=== PATIENT | male | born 1945 | race Caucasian/White ===

== ENCOUNTER → 2017-02-03 | Outpatient (CLI) | payer MEDICARE ==
[~2017-02-03] MED LIST: REGADENOSON 0.4 MG/5 ML SYRINGE ONE
== END | disposition home or self-care (01) ==
LOC: CFH 11:36
PROVIDERS: ATTEND Physician Assistant Medical
DX: I25.9 Chronic ischemic heart disease, unspecified (principal)
CPT/HCPCS: 78452; 93017; A9502; J2785

== ENCOUNTER 2017-03-05 06:50 | Inpatient (IN) | payer MEDICARE ==
[~2017-03-05] VITALS: Ht 185.4 cm; Wt 106.3 kg
[2017-03-05] MEDS ORDERED: BIVALIRUDIN 250 MG ONE ×2 (07:07→09:17)
[2017-03-05] MEDS ORDERED: VERAPAMIL 2.5 MG/ML, 2ML ONE (07:07)
[2017-03-05] MEDS ORDERED: MIDAZOLAM 1 MG/ML, 5ML ONE ×2 (07:07→08:51)
[2017-03-05] MEDS ORDERED: LIDOCAINE 2%, 20ML ONE (07:07)
[2017-03-05] MEDS ORDERED: FENTANYL PF 100 MCG/2ML ONE ×2 (07:07→08:51)
[2017-03-05] MEDS ORDERED: TICAGRELOR 90 MG TABLET ONE (07:07)
[2017-03-05] MEDS ORDERED: HEPARIN 1,000 UNITS/ML, 10ML ONE (07:07)
[2017-03-05] MEDS ORDERED: NITROGLYCERIN 5 MG/ML, 10ML ONE (07:07)
[2017-03-05 07:18] VITALS: BP 130/87
[2017-03-05] MEDS ORDERED: WARF2.5T73 PO (07:50)
[2017-03-05] MEDS ORDERED: POTA20TA6 PO (07:50)
[2017-03-05] MEDS ORDERED: DILT240C55 PO (07:50)
[2017-03-05] MEDS ORDERED: FURO-93 PO (07:50)
[2017-03-05] MEDS ORDERED: LOSA100T6 PO (07:50)
[2017-03-05] MEDS ORDERED: ASPI-496 PO (07:50)
[2017-03-05] MEDS ORDERED: DIGO250T PO (07:50)
[2017-03-05] MEDS ORDERED: SIMV40TA3 PO (07:50)
[2017-03-05] MEDS ORDERED: METF500T4 PO (07:50)
[2017-03-05] MEDS ORDERED: SODIUM CHLORIDE 0.9% 1,000 ML IV SCH (10:45)
[2017-03-05] MEDS ORDERED: ZOLPIDEM 5MG TABLET PO PRN (11:00)
[2017-03-05] MEDS ORDERED: BISACODYL 5 MG EC TABLET PO PRN (11:00)
[2017-03-05] MEDS ORDERED: ACETAMINOPHEN 325 MG TABLET PO PRN (11:00)
[2017-03-05] MEDS ORDERED: ONDANSETRON 2MG/ML, 2ML IVPush PRN (11:00)
[2017-03-05] MEDS: ISOSORBIDE MONONITRATE ER 30 MG TABLET PO SCH (13:39)
[2017-03-05] MEDS: metFORMIN 500 MG TABLET PO SCH (13:39)
[2017-03-05 14:57] VITALS: BP 118/70
[2017-03-05] MEDS ORDERED: WARFARIN 2.5 MG TABLET PO-COUM SCH (18:00)
[2017-03-05 19:12] VITALS: BP 118/75
[2017-03-05] MEDS: TICAGRELOR 90 MG TABLET PO SCH (20:09)
[2017-03-05] MEDS ORDERED: SIMVASTATIN 40 MG TABLET PO SCH (21:00)
[2017-03-06 01:47] VITALS: BP 113/66
[2017-03-06 07:18] VITALS: BP 155/93
[2017-03-06] MEDS: metFORMIN 500 MG TABLET PO SCH (08:00)
[2017-03-06] MEDS: TICAGRELOR 90 MG TABLET PO SCH (08:49)
[2017-03-06] MEDS: ISOSORBIDE MONONITRATE ER 30 MG TABLET PO SCH (08:51)
[2017-03-06] MEDS ORDERED: ASPIRIN 81 MG TABLET EC PO SCH (09:00)
[2017-03-06] MEDS ORDERED: FUROSEMIDE 40 MG TABLET PO SCH (09:00)
[2017-03-06] MEDS ORDERED: DILTIAZEM 240 MG CAP.ER.24H PO SCH (09:00)
[2017-03-06] MEDS ORDERED: LOSARTAN 50MG TABLET PO SCH (09:00)
[2017-03-06] MEDS ORDERED: POTASSIUM CHLORIDE 20 MEQ TAB.ER.PRT PO SCH (09:00)
[2017-03-06] MEDS ORDERED: DIGOXIN 0.25 MG TABLET PO SCH (09:00)
[2017-03-06] MEDS ORDERED: TICA90TA PO (11:00)
[2017-03-06] MEDS ORDERED: ISOS30TA8 PO (11:00)
== END 2017-03-06 12:16 | disposition home or self-care (01) | DRG 246 ==
LOC: CACL 06:50 → 5SO 11:18 → CACL 22:30 → 5SO 22:31
PROVIDERS: ADMIT Internal Medicine Cardiovascular Disease; ATTEND Internal Medicine Cardiovascular Disease
PROC: 027137Z Dilation of Coronary Artery, Two Arteries with Four or More Drug-eluting Intraluminal Devices, Percutaneous Approach (ICD-10-PCS; principal; 2017-03-05)
PROC: 4A023N7 Measurement of Cardiac Sampling and Pressure, Left Heart, Percutaneous Approach (ICD-10-PCS; 2017-03-05)
PROC: B2111ZZ Fluoroscopy of Multiple Coronary Arteries using Low Osmolar Contrast (ICD-10-PCS; 2017-03-05)
PROC: B2151ZZ Fluoroscopy of Left Heart using Low Osmolar Contrast (ICD-10-PCS; 2017-03-05)
DX: I25.10 Atherosclerotic heart disease of native coronary artery without angina pectoris (principal); D68.69 Other thrombophilia; I48.2 Chronic atrial fibrillation; E11.9 Type 2 diabetes mellitus without complications; E78.5 Hyperlipidemia, unspecified; I10 Essential (primary) hypertension
CPT/HCPCS: 36415; 71020; 82962; 85610; 85730; 93458; 99156; 99157; C1769; C1894; C9600; J0583; J1644; J2250; J3010; J3490; C1725; C1874; C1887; Q9967

== ENCOUNTER → 2017-09-17 | Outpatient (CLI) | payer MEDICARE ==
[~2017-09-17] MED LIST changes: +ASPI-496 PO; +DIGO250T PO; +DILT240C55 PO; +FURO-93 PO; +ISOS30TA8 PO; +LOSA100T6 PO; +METF500T4 PO; +POTA20TA6 PO; +SIMV40TA3 PO; +TICA90TA PO; +WARF2.5T73 PO
== END | disposition home or self-care (01) ==
LOC: CFH 10:22
PROVIDERS: ATTEND Internal Medicine Cardiovascular Disease
DX: I08.3 Combined rheumatic disorders of mitral, aortic and tricuspid valves (principal); E78.5 Hyperlipidemia, unspecified; I10 Essential (primary) hypertension; I25.5 Ischemic cardiomyopathy; I48.91 Unspecified atrial fibrillation; Z79.01 Long term (current) use of anticoagulants
CPT/HCPCS: 78452; 93017; 93306; A9502; J2785

== ENCOUNTER 2017-11-26 04:20 | Inpatient (IN) | payer MEDICARE ==
[2017-11-25 13:46] LABS: BASOPHILS # (AUTO) 0.03 x10^3/uL (0-0.1); BASOPHILS % (AUTO) 0 % (0-1); EOSINOPHILS # (AUTO) 0.14 x10^3/uL (0-0.4); EOSINOPHILS % (AUTO) 2 % (1-7); LYMPHOCYTES # (AUTO) 1.84 x10^3/uL (1-3.4); LYMPHOCYTES % (AUTO) 23 % (22-44); MD NO; MEAN CORPUSCULAR HEMOGLOBIN 28.9 pg (27.5-34.5); MEAN CORPUSCULAR HGB CONC 32.2 g/dL (33.2-36.2); MEAN CORPUSCULAR VOLUME 89.6 fL (81-97); MEAN PLATELET VOLUME 8.7 fL (7.4-10.4); MONOCYTES # (AUTO) 0.81 x10^3/uL (0.2-0.8); MONOCYTES % (AUTO) 10 % (2-9); NEUTROPHILS # (AUTO) 5.12 x10^3/uL (1.8-6.8); NEUTROPHILS % (AUTO) 65 % (42-75); PLATELET COUNT 223 x10^3/uL (130-400); RED BLOOD COUNT 5.43 x10^6/uL (4.38-5.82); RED CELL DISTRIBUTION WIDTH 14.8 % (9.4-14.8)
[2017-11-25 13:50] LABS: MICROSCOPIC AUTO
[2017-11-25 13:55] LABS: INTERNATIONAL NORMALIZED RATIO 1.22 (0.93-1.1); PROTHROMBIN TIME 12.6 Seconds (9.6-11.5)
[2017-11-25 13:59] LABS: ALANINE AMINOTRANSFERASE 32 U/L (12-78); ALBUMIN 3.6 g/dL (3.4-5.0); ANION GAP 8 mmol/L (5-15); CALCIUM 9.2 mg/dL (8.5-10.1); CHLORIDE 103 mmol/L (98-107); CREATININE 1.21 mg/dL (0.7-1.3)
[2017-11-25 14:01] LABS: ALKALINE PHOSPHATASE 135 U/L (45-117); BILIRUBIN,TOTAL 0.8 mg/dL (0.2-1.0); TOTAL PROTEIN 7.3 g/dL (6.4-8.2)
[2017-11-25 14:26] LABS: HEMOGLOBIN A1C 13.8 % (4.2-6.3)
[~2017-11-26] VITALS: Ht 185.4 cm; Wt 106.5 kg
[~2017-11-26 04:20] MED LIST changes: -REGADENOSON 0.4 MG/5 ML SYRINGE ONE
[2017-11-26 04:34] VITALS: BP 149/90
[2017-11-26 04:35] VITALS: BP 132/87
[2017-11-26] MEDS ORDERED: CHLORHEXIDINE 15 ML BOTTLE MM SCH (05:00)
[2017-11-26] MEDS ORDERED: INSULIN LISPRO 100 UNITS/ML, PEN SQ-INSULIN SCH (05:00)
[2017-11-26] MEDS: MUPIROCIN OINT 2%, 22GM TP SCH ×2 (05:37→21:00)
[2017-11-26] MEDS ORDERED: PHENYLEPHRINE 10 MG in SODIUM CHLORIDE 0.9% 249 ML IV PRN ×2 (07:30→11:51)
[2017-11-26] MEDS ORDERED: DEXMEDETOMIDINE 200 MCG in SODIUM CHLORIDE 0.9% 48 ML IV SCH (07:30)
[2017-11-26] MEDS ORDERED: VANCOMYCIN 1,400 MG in SODIUM CHLORIDE 0.9% 250 ML IV PRN (07:30)
[2017-11-26] MEDS ORDERED: CEFUROXIME 1.5 GM in SODIUM CHLORIDE 0.9% 50 ML IVPB PRN (07:30)
[2017-11-26] MEDS ORDERED: POTASSIUM CHLORIDE 80 MEQ, SODIUM BICARBONATE 8.4% 10 MEQ, MAGNESIUM SULFATE 0.5 GM, LI... IV PRN (07:30)
[2017-11-26] MEDS ORDERED: REGULAR INSULIN 62.5 UNITS in SODIUM CHLORIDE 0.9% 249.375 ML IV PRN ×2 (07:30→11:51)
[2017-11-26] MEDS ORDERED: MANNITOL PMX 20% 500 ML IVPB PRN (07:30)
[2017-11-26] MEDS ORDERED: EPINEPHRINE 2 MG in SODIUM CHLORIDE 0.9% 248 ML IV SCH (07:30)
[2017-11-26] MEDS ORDERED: ALBUMIN HUMAN 5% 500 ML IV PRN (07:30)
[2017-11-26] MEDS ORDERED: FENTANYL PF 250 MCG/5ML ONE ×4 (07:33)
[2017-11-26] MEDS ORDERED: MIDAZOLAM 10MG/2 ML ONE (07:33)
[2017-11-26] MEDS ORDERED: CALCIUM CHLORIDE 10%, 10ML SYR ONE (07:34)
[2017-11-26] MEDS ORDERED: PROPOFOL 10 MG/ML, 20ML ONE (07:54)
[2017-11-26] MEDS: DOCUSATE 100 MG CAPSULE PO SCH ×2 (09:00→21:58)
[2017-11-26] MEDS ORDERED: ROCURONIUM 10MG/ML,5ML ONE ×3 (10:12)
[2017-11-26] MEDS ORDERED: DEXMEDETOMIDINE 200 MCG in SODIUM CHLORIDE 0.9% 48 ML IV PRN (11:51)
[2017-11-26] MEDS ORDERED: DOBUTAMINE 250 MG in SODIUM CHLORIDE 0.9% 230 ML IV PRN (11:51)
[2017-11-26] MEDS ORDERED: NITROGLYCERIN/D5W PMX 250 ML IV PRN (11:51)
[2017-11-26] MEDS ORDERED: VASOPRESSIN 50 UNIT in SODIUM CHLORIDE 0.9% 250 ML IV PRN (11:51)
[2017-11-26] MEDS ORDERED: SODIUM CHLORIDE 0.9% 1,000 ML IV PRN (11:51)
[2017-11-26] MEDS ORDERED: DEXTROSE 50%, 50ML SYRINGE IVPush PRN (12:00)
[2017-11-26] MEDS ORDERED: CEFUROXIME 1.5 GM in SODIUM CHLORIDE 0.9% 50 ML IVPB SCH (12:00)
[2017-11-26] MEDS ORDERED: BISACODYL 5 MG EC TABLET PO PRN (12:00)
[2017-11-26] MEDS ORDERED: LACTATED RINGERS 1,000 ML IV PRN (12:00)
[2017-11-26] MEDS ORDERED: LIDOCAINE 2% 100MG/5ML SYRINGE ONE (12:00)
[2017-11-26] MEDS ORDERED: ONDANSETRON 2MG/ML, 2ML IVPush PRN (12:00)
[2017-11-26] MEDS ORDERED: GLUCAGON 1 MG IM PRN (12:00)
[2017-11-26] MEDS ORDERED: EPINEPHRINE 2 MG in SODIUM CHLORIDE 0.9% 248 ML IV PRN (12:00)
[2017-11-26] MEDS ORDERED: SODIUM BICARB 8.4%, 50ML SYRINGE ONE (12:00)
[2017-11-26] MEDS ORDERED: MIDAZOLAM 1 MG/ML, 5ML IVPush PRN (12:00)
[2017-11-26] MEDS ORDERED: VANCOMYCIN 1,400 MG in SODIUM CHLORIDE 0.9% 250 ML IVPB SCH (12:00)
[2017-11-26] MEDS ORDERED: methylPREDNISolone SOD SUCC 125 MG/2 ML ONE (12:00)
[2017-11-26] MEDS ORDERED: HEPARIN 1,000 UNITS/ML, 30ML ONE (12:00)
[2017-11-26] MEDS: KSCALE TO 4.5 IV SCH ×2 (12:00→18:00)
[2017-11-26] MEDS ORDERED: ALBUMIN HUMAN 25% 50 ML ONE (12:00)
[2017-11-26] MEDS ORDERED: morphine SULFATE 10 MG/ML, 1ML IVPush PRN (12:00)
[2017-11-26] MEDS ORDERED: SODIUM BICARB 8.4%, 50ML SYRINGE IV PRN (12:00)
[2017-11-26] MEDS ORDERED: BISACODYL 10 MG SUPP PR PRN (12:00)
[2017-11-26] MEDS ORDERED: PROCHLORPERAZINE 5 MG/ML, 2ML IVPush PRN (12:00)
[2017-11-26] MEDS ORDERED: ACETAMINOPHEN 650 MG SUPP PR PRN (12:00)
[2017-11-26] MEDS ORDERED: INSULIN REGULAR 100 UNITS/ML, 3ML VIAL IVPush PRN (12:00)
[2017-11-26] MEDS ORDERED: DEXTROSE 4 GM TAB.CHEW PO PRN (12:00)
[2017-11-26 12:37] LABS: GLUCOSE BY BLOOD GAS ANALYZER 176 mg/dL (70-110); HEMOGLOBIN BY BLOOD GAS ANALYZ 13.6 g/dL (14.0-18.0); POTASSIUM BY BLOOD GAS ANALYZR 3.7 mmol/L (3.6-5.5)
[2017-11-26 12:47] LABS: INTERNATIONAL NORMALIZED RATIO 1.28 (0.93-1.1); PROTHROMBIN TIME 13.2 Seconds (9.6-11.5)
[2017-11-26] MEDS: MAGNESIUM SULFATE 1 GM in SODIUM CHLORIDE 0.9% 50 ML IVPB SCH (13:28)
[2017-11-26] MEDS: SODIUM CHLORIDE FLUSH 10ML SYR IVF SCH ×2 (13:29→21:59)
[2017-11-26] MEDS ORDERED: POTASSIUM CHLORIDE 20 MEQ in SODIUM CHLORIDE 0.9% 100 ML IV ONE ×2 (14:30)
[2017-11-26] MEDS ORDERED: POTASSIUM CHLORIDE PMX 100 ML IV ONE (14:30)
[2017-11-26] MEDS: OXYcodone IR 5MG TABLET PO PRN ×2 (14:53→17:44)
[2017-11-26] MEDS: INSULIN LISPRO 100 UNITS/ML, PEN SQ-INSULIN SCH ×2 (16:00→21:00)
[2017-11-26] MEDS: VANCOMYCIN 1,400 MG in SODIUM CHLORIDE 0.9% 250 ML IVPB SCH (20:19)
[2017-11-26] MEDS: CEFUROXIME 1.5 GM in SODIUM CHLORIDE 0.9% 50 ML IVPB SCH (20:42)
[2017-11-26] MEDS ORDERED: SODIUM CHLORIDE FLUSH 10ML SYR IVF SCH (21:00)
[2017-11-26] MEDS: HYDROcodone/APAP 5/325 TABLET PO PRN (21:58)
[2017-11-26] MEDS: MUPIROCIN OINT 2%, 22GM NAS SCH (21:59)
[2017-11-27] MEDS: HYDROcodone/APAP 5/325 TABLET PO PRN ×5 (02:21→15:43)
[2017-11-27 04:28] LABS: BASOPHILS # (AUTO) 0.01 x10^3/uL (0-0.1); BASOPHILS % (AUTO) 0 % (0-1); EOSINOPHILS % (AUTO) 0 % (1-7); LYMPHOCYTES # (AUTO) 0.65 x10^3/uL (1-3.4); LYMPHOCYTES % (AUTO) 6 % (22-44); MD NO; MEAN CORPUSCULAR HEMOGLOBIN 29.2 pg (27.5-34.5); MEAN CORPUSCULAR HGB CONC 32.2 g/dL (33.2-36.2); MEAN CORPUSCULAR VOLUME 90.7 fL (81-97); MEAN PLATELET VOLUME 8.5 fL (7.4-10.4); MONOCYTES # (AUTO) 1.08 x10^3/uL (0.2-0.8); MONOCYTES % (AUTO) 9 % (2-9); NEUTROPHILS # (AUTO) 10.16 x10^3/uL (1.8-6.8); NEUTROPHILS % (AUTO) 85 % (42-75); PLATELET COUNT 205 x10^3/uL (130-400); RED BLOOD COUNT 4.86 x10^6/uL (4.38-5.82); RED CELL DISTRIBUTION WIDTH 15.5 % (9.4-14.8)
[2017-11-27 04:35] LABS: ALBUMIN 3.4 g/dL (3.4-5.0); ANION GAP 9 mmol/L (5-15); CALCIUM 8.2 mg/dL (8.5-10.1); CHLORIDE 110 mmol/L (98-107)
[2017-11-27 04:36] LABS: CREATININE 0.88 mg/dL (0.7-1.3)
[2017-11-27 05:00] VITALS: BP 111/54
[2017-11-27] MEDS: KSCALE TO 4.5 IV SCH ×2 (06:00)
[2017-11-27] MEDS: INSULIN LISPRO 100 UNITS/ML, PEN SQ-INSULIN SCH ×4 (07:00→21:50)
[2017-11-27] MEDS ORDERED: MAGNESIUM HYDROXIDE 8%, 30ML UDC PO PRN (07:00)
[2017-11-27] MEDS: CEFUROXIME 1.5 GM in SODIUM CHLORIDE 0.9% 50 ML IVPB SCH (07:40)
[2017-11-27] MEDS: VANCOMYCIN 1,400 MG in SODIUM CHLORIDE 0.9% 250 ML IVPB SCH (07:40)
[2017-11-27 07:47] LABS: INTERNATIONAL NORMALIZED RATIO 1.1 (0.93-1.1); PROTHROMBIN TIME 11.4 Seconds (9.6-11.5)
[2017-11-27] MEDS ORDERED: POTASSIUM CHLORIDE 20 MEQ TAB.ER.PRT PO ONE (08:00)
[2017-11-27] MEDS: AMIODARONE 200 MG TABLET PO SCH ×2 (08:21→21:46)
[2017-11-27] MEDS: ASPIRIN 81 MG TABLET EC PO SCH (08:21)
[2017-11-27] MEDS: DOCUSATE 100 MG CAPSULE PO SCH ×2 (08:21→21:46)
[2017-11-27] MEDS: ISOSORBIDE MONONITRATE ER 30 MG TABLET PO SCH (08:21)
[2017-11-27] MEDS: DILTIAZEM 120 MG CAP.ER.24H PO SCH (08:21)
[2017-11-27] MEDS: SODIUM CHLORIDE FLUSH 10ML SYR IVF SCH ×2 (08:22→21:49)
[2017-11-27] MEDS: TICAGRELOR 90 MG TABLET PO SCH ×2 (08:22→21:46)
[2017-11-27] MEDS: WARFARIN BIOPROSTHETIC VALVE PROTOCOL 2-3 XX SCH (08:23)
[2017-11-27] MEDS: MUPIROCIN OINT 2%, 22GM NAS SCH ×2 (08:23→21:47)
[2017-11-27] MEDS: MUPIROCIN OINT 2%, 22GM TP SCH (08:23)
[2017-11-27] MEDS ORDERED: DILTIAZEM 240 MG CAP.ER.24H PO SCH (09:00)
[2017-11-27] MEDS ORDERED: metFORMIN 500 MG TABLET PO SCH (09:00)
[2017-11-27] MEDS ORDERED: FUROSEMIDE 40 MG/4 ML IV SCH (09:00)
[2017-11-27] MEDS: MAGNESIUM SULFATE 1 GM in SODIUM CHLORIDE 0.9% 50 ML IVPB SCH (12:13)
[2017-11-27] MEDS: CHLORHEXIDINE 15 ML BOTTLE MM SCH ×2 (15:43→21:44)
[2017-11-27] MEDS: SITAGLIPTIN 50MG TABLET PO SCH (15:57)
[2017-11-27 16:20] VITALS: BP 136/75
[2017-11-27] MEDS: OXYcodone IR 5MG TABLET PO PRN (16:24)
[2017-11-27] MEDS: metFORMIN 500 MG TABLET PO SCH (16:50)
[2017-11-27] MEDS ORDERED: WARFARIN 5 MG TABLET PO-COUM SCH (18:00)
[2017-11-27] MEDS ORDERED: SODIUM CHLORIDE FLUSH 10ML SYR IVF SCH (21:00)
[2017-11-27] MEDS: SIMVASTATIN 40 MG TABLET PO SCH (21:46)
[2017-11-27 21:50] VITALS: BP 118/62
[2017-11-28 01:13] VITALS: BP 120/65
[2017-11-28 04:23] LABS: MEAN CORPUSCULAR HEMOGLOBIN 29.4 pg (27.5-34.5); MEAN CORPUSCULAR HGB CONC 32.3 g/dL (33.2-36.2); MEAN CORPUSCULAR VOLUME 90.9 fL (81-97); MEAN PLATELET VOLUME 8.5 fL (7.4-10.4); PLATELET COUNT 175 x10^3/uL (130-400); RED BLOOD COUNT 4.57 x10^6/uL (4.38-5.82); RED CELL DISTRIBUTION WIDTH 15.9 % (9.4-14.8)
[2017-11-28 04:28] LABS: MD YES
[2017-11-28 04:30] LABS: INTERNATIONAL NORMALIZED RATIO 1.21 (0.93-1.1); PROTHROMBIN TIME 12.5 Seconds (9.6-11.5)
[2017-11-28 04:38] LABS: ANION GAP 9 mmol/L (5-15); CALCIUM 8.7 mg/dL (8.5-10.1); CHLORIDE 105 mmol/L (98-107); CREATININE 1.49 mg/dL (0.7-1.3)
[2017-11-28 04:42] LABS: LYMPHS% (MANUAL) 11 % (22-44); MONOS#(MANUAL) 1.27 x10^3/uL (0.3-2.7); MONOS% (MANUAL) 10 % (2-9); SEG#(MANUAL) 10.03 x10^3/uL (1.8-6.8); SEGS% (MANUAL) 79 % (42-75)
[2017-11-28 04:43] LABS: <PLATELET ESTIMATE> ADEQUATE; ANISOCYTOSIS 1+; LARGE PLATELETS 1+; POLYCHROMASIA 1+
[2017-11-28] MEDS: metFORMIN 500 MG TABLET PO SCH (05:53)
[2017-11-28] MEDS ORDERED: LACTATED RINGERS 500 ML IVBOLUS ONE (06:30)
[2017-11-28] MEDS ORDERED: INSULIN GLARGINE 100 UNITS/ML, PEN SQ-INSULIN ONE (07:00)
[2017-11-28 07:05] VITALS: BP 110/65
[2017-11-28] MEDS: INSULIN LISPRO 100 UNITS/ML, PEN SQ-INSULIN SCH ×4 (08:29→21:41)
[2017-11-28] MEDS: SODIUM CHLORIDE FLUSH 10ML SYR IVF SCH ×2 (08:30→21:38)
[2017-11-28] MEDS: ASPIRIN 81 MG TABLET EC PO SCH (08:31)
[2017-11-28] MEDS: DOCUSATE 100 MG CAPSULE PO SCH ×2 (08:31→21:37)
[2017-11-28] MEDS: SITAGLIPTIN 50MG TABLET PO SCH (08:31)
[2017-11-28] MEDS: DILTIAZEM 120 MG CAP.ER.24H PO SCH (08:31)
[2017-11-28] MEDS: MUPIROCIN OINT 2%, 22GM NAS SCH ×2 (08:31→21:38)
[2017-11-28] MEDS: TICAGRELOR 90 MG TABLET PO SCH ×2 (08:31→21:37)
[2017-11-28] MEDS: ACETAMINOPHEN 325 MG TABLET PO PRN ×2 (08:32→21:37)
[2017-11-28] MEDS: AMIODARONE 200 MG TABLET PO SCH ×2 (08:32→21:38)
[2017-11-28] MEDS: WARFARIN BIOPROSTHETIC VALVE PROTOCOL 2-3 XX SCH (08:32)
[2017-11-28] MEDS: ISOSORBIDE MONONITRATE ER 30 MG TABLET PO SCH (08:32)
[2017-11-28] MEDS: CHLORHEXIDINE 15 ML BOTTLE MM SCH (11:59)
[2017-11-28] MEDS: MAGNESIUM SULFATE 1 GM in SODIUM CHLORIDE 0.9% 50 ML IVPB SCH (12:09)
[2017-11-28 13:30] VITALS: BP 116/72
[2017-11-28 14:58] LABS: ANION GAP 10 mmol/L (5-15); CALCIUM 8.3 mg/dL (8.5-10.1); CHLORIDE 103 mmol/L (98-107); CREATININE 1.64 mg/dL (0.7-1.3)
[2017-11-28] MEDS ORDERED: WARFARIN 3 MG TABLET PO-COUM SCH (18:00)
[2017-11-28 19:20] VITALS: BP 123/78
[2017-11-28] MEDS: SIMVASTATIN 40 MG TABLET PO SCH (21:37)
[2017-11-28] MEDS: INSULIN GLARGINE 100 UNITS/ML, PEN SQ-INSULIN SCH (21:41)
[2017-11-29] MEDS: CHLORHEXIDINE 15 ML BOTTLE MM SCH (00:16)
[2017-11-29 00:17] VITALS: BP 114/69
[2017-11-29 06:08] LABS: MEAN CORPUSCULAR HEMOGLOBIN 28.5 pg (27.5-34.5); MEAN CORPUSCULAR HGB CONC 31.5 g/dL (33.2-36.2); MEAN CORPUSCULAR VOLUME 90.4 fL (81-97); MEAN PLATELET VOLUME 8.6 fL (7.4-10.4); PLATELET COUNT 163 x10^3/uL (130-400); RED BLOOD COUNT 4.61 x10^6/uL (4.38-5.82); RED CELL DISTRIBUTION WIDTH 15.7 % (9.4-14.8)
[2017-11-29 06:11] LABS: INTERNATIONAL NORMALIZED RATIO 1.26 (0.93-1.1)
[2017-11-29 06:18] LABS: ALBUMIN 2.8 g/dL (3.4-5.0); ANION GAP 9 mmol/L (5-15); CALCIUM 8.7 mg/dL (8.5-10.1); CHLORIDE 102 mmol/L (98-107)
[2017-11-29 06:23] LABS: ALANINE AMINOTRANSFERASE 25 U/L (12-78); ALKALINE PHOSPHATASE 91 U/L (45-117); BILIRUBIN,TOTAL 1.1 mg/dL (0.2-1.0); CREATININE 1.49 mg/dL (0.7-1.3); TOTAL PROTEIN 6.2 g/dL (6.4-8.2)
[2017-11-29 06:34] LABS: BASOPHILS # (AUTO) 0.04 x10^3/uL (0-0.1); BASOPHILS % (AUTO) 0 % (0-1); EOSINOPHILS # (AUTO) 0.01 x10^3/uL (0-0.4); EOSINOPHILS % (AUTO) 0 % (1-7); LYMPHOCYTES # (AUTO) 1.12 x10^3/uL (1-3.4); LYMPHOCYTES % (AUTO) 10 % (22-44); MONOCYTES # (AUTO) 1.57 x10^3/uL (0.2-0.8); MONOCYTES % (AUTO) 14 % (2-9); NEUTROPHILS # (AUTO) 8.52 x10^3/uL (1.8-6.8); NEUTROPHILS % (AUTO) 76 % (42-75)
[2017-11-29 06:35] LABS: MD SCAN
[2017-11-29 07:05] VITALS: BP 115/74
[2017-11-29] MEDS: MUPIROCIN OINT 2%, 22GM NAS SCH ×2 (08:48→22:16)
[2017-11-29] MEDS: INSULIN GLARGINE 100 UNITS/ML, PEN SQ-INSULIN SCH ×2 (08:50→22:22)
[2017-11-29] MEDS: INSULIN LISPRO 100 UNITS/ML, PEN SQ-INSULIN SCH ×4 (08:50→22:22)
[2017-11-29] MEDS: ASPIRIN 81 MG TABLET EC PO SCH (08:51)
[2017-11-29] MEDS: SODIUM CHLORIDE FLUSH 10ML SYR IVF SCH ×2 (08:51→22:17)
[2017-11-29] MEDS: ACETAMINOPHEN 325 MG TABLET PO PRN ×2 (08:51→14:42)
[2017-11-29] MEDS: DILTIAZEM 120 MG CAP.ER.24H PO SCH (08:51)
[2017-11-29] MEDS: AMIODARONE 200 MG TABLET PO SCH ×2 (08:51→22:16)
[2017-11-29] MEDS: TICAGRELOR 90 MG TABLET PO SCH ×2 (08:51→22:16)
[2017-11-29] MEDS: DOCUSATE 100 MG CAPSULE PO SCH ×2 (08:51→22:16)
[2017-11-29] MEDS: ISOSORBIDE MONONITRATE ER 30 MG TABLET PO SCH (08:51)
[2017-11-29] MEDS: WARFARIN BIOPROSTHETIC VALVE PROTOCOL 2-3 XX SCH (08:52)
[2017-11-29 12:55] VITALS: BP 123/76
[2017-11-29] MEDS ORDERED: WARFARIN 5 MG TABLET PO-COUM ONE (18:00)
[2017-11-29] MEDS: HYDROcodone/APAP 5/325 TABLET PO PRN (18:08)
[2017-11-29 20:33] VITALS: BP 113/71
[2017-11-29] MEDS: SIMVASTATIN 40 MG TABLET PO SCH (22:17)
[2017-11-29] MEDS: HYDROcodone/APAP 10/325 MG TABLET PO PRN (22:26)
[2017-11-30 00:55] VITALS: BP 125/70
[2017-11-30 05:16] LABS: MEAN CORPUSCULAR HEMOGLOBIN 28.9 pg (27.5-34.5); MEAN CORPUSCULAR HGB CONC 32.2 g/dL (33.2-36.2); MEAN CORPUSCULAR VOLUME 89.8 fL (81-97); MEAN PLATELET VOLUME 8.5 fL (7.4-10.4); PLATELET COUNT 182 x10^3/uL (130-400); RED BLOOD COUNT 4.48 x10^6/uL (4.38-5.82); RED CELL DISTRIBUTION WIDTH 15.5 % (9.4-14.8)
[2017-11-30 05:20] LABS: CHLORIDE 102 mmol/L (98-107)
[2017-11-30 05:24] LABS: ANION GAP 9 mmol/L (5-15); CALCIUM 8.5 mg/dL (8.5-10.1)
[2017-11-30 05:27] LABS: INTERNATIONAL NORMALIZED RATIO 1.58 (0.93-1.1); PROTHROMBIN TIME 16.3 Seconds (9.6-11.5)
[2017-11-30 05:52] LABS: BASOPHILS # (AUTO) 0.03 x10^3/uL (0-0.1); BASOPHILS % (AUTO) 0 % (0-1); EOSINOPHILS # (AUTO) 0.06 x10^3/uL (0-0.4); EOSINOPHILS % (AUTO) 1 % (1-7); LYMPHOCYTES # (AUTO) 1.04 x10^3/uL (1-3.4); LYMPHOCYTES % (AUTO) 11 % (22-44); MD SCAN; MONOCYTES # (AUTO) 1.52 x10^3/uL (0.2-0.8); MONOCYTES % (AUTO) 17 % (2-9); NEUTROPHILS # (AUTO) 6.59 x10^3/uL (1.8-6.8); NEUTROPHILS % (AUTO) 71 % (42-75)
[2017-11-30] MEDS: ACETAMINOPHEN 325 MG TABLET PO PRN (06:44)
[2017-11-30 07:18] VITALS: BP 153/93
[2017-11-30] MEDS: DOCUSATE 100 MG CAPSULE PO SCH ×2 (09:00→21:00)
[2017-11-30] MEDS: WARFARIN BIOPROSTHETIC VALVE PROTOCOL 2-3 XX SCH (09:00)
[2017-11-30] MEDS: INSULIN GLARGINE 100 UNITS/ML, PEN SQ-INSULIN SCH ×2 (09:09→21:24)
[2017-11-30] MEDS: INSULIN LISPRO 100 UNITS/ML, PEN SQ-INSULIN SCH ×4 (09:09→21:24)
[2017-11-30] MEDS: FUROSEMIDE 40 MG/4 ML IV SCH (09:10)
[2017-11-30] MEDS: DILTIAZEM 120 MG CAP.ER.24H PO SCH (09:10)
[2017-11-30] MEDS: ASPIRIN 81 MG TABLET EC PO SCH (09:11)
[2017-11-30] MEDS: AMIODARONE 200 MG TABLET PO SCH ×2 (09:11→21:19)
[2017-11-30] MEDS: TICAGRELOR 90 MG TABLET PO SCH ×2 (09:11→21:19)
[2017-11-30] MEDS: MUPIROCIN OINT 2%, 22GM NAS SCH ×2 (09:11→21:20)
[2017-11-30] MEDS: ISOSORBIDE MONONITRATE ER 30 MG TABLET PO SCH (09:11)
[2017-11-30] MEDS: SODIUM CHLORIDE FLUSH 10ML SYR IVF SCH ×2 (09:12→21:20)
[2017-11-30 12:55] VITALS: BP 110/70
[2017-11-30] MEDS: SITAGLIPTIN 50MG TABLET PO SCH (17:18)
[2017-11-30] MEDS: metFORMIN 500 MG TABLET PO SCH (17:18)
[2017-11-30] MEDS ORDERED: WARFARIN 7.5 MG TABLET PO-COUM ONE (18:00)
[2017-11-30 18:22] VITALS: BP 115/75
[2017-11-30] MEDS: SIMVASTATIN 40 MG TABLET PO SCH (21:19)
[2017-11-30] MEDS: HYDROcodone/APAP 10/325 MG TABLET PO PRN (21:19)
[2017-12-01 02:58] VITALS: BP 113/72
[2017-12-01 05:45] LABS: BASOPHILS # (AUTO) 0.03 x10^3/uL (0-0.1); BASOPHILS % (AUTO) 0 % (0-1); EOSINOPHILS # (AUTO) 0.13 x10^3/uL (0-0.4); EOSINOPHILS % (AUTO) 2 % (1-7); LYMPHOCYTES # (AUTO) 0.87 x10^3/uL (1-3.4); LYMPHOCYTES % (AUTO) 12 % (22-44); MD NO; MEAN CORPUSCULAR HEMOGLOBIN 29.1 pg (27.5-34.5); MEAN CORPUSCULAR HGB CONC 32.3 g/dL (33.2-36.2); MEAN PLATELET VOLUME 8.4 fL (7.4-10.4); MONOCYTES # (AUTO) 1.24 x10^3/uL (0.2-0.8); MONOCYTES % (AUTO) 16 % (2-9); NEUTROPHILS # (AUTO) 5.33 x10^3/uL (1.8-6.8); NEUTROPHILS % (AUTO) 70 % (42-75); PLATELET COUNT 205 x10^3/uL (130-400); RED BLOOD COUNT 4.42 x10^6/uL (4.38-5.82)
[2017-12-01 05:50] LABS: INTERNATIONAL NORMALIZED RATIO 2.94 (0.93-1.1); PROTHROMBIN TIME 29.9 Seconds (9.6-11.5)
[2017-12-01 05:53] LABS: ANION GAP 6 mmol/L (5-15); CALCIUM 8.2 mg/dL (8.5-10.1); CHLORIDE 102 mmol/L (98-107); CREATININE 1.37 mg/dL (0.7-1.3)
[2017-12-01] MEDS: INSULIN LISPRO 100 UNITS/ML, PEN SQ-INSULIN SCH ×4 (07:00→21:36)
[2017-12-01 07:05] VITALS: BP 118/73
[2017-12-01] MEDS: DOCUSATE 100 MG CAPSULE PO SCH ×2 (09:00→21:32)
[2017-12-01] MEDS: metFORMIN 500 MG TABLET PO SCH ×2 (09:00→17:19)
[2017-12-01] MEDS: WARFARIN BIOPROSTHETIC VALVE PROTOCOL 2-3 XX SCH (09:00)
[2017-12-01] MEDS: FUROSEMIDE 40 MG/4 ML IV SCH (09:01)
[2017-12-01] MEDS: SODIUM CHLORIDE FLUSH 10ML SYR IVF SCH ×2 (09:01→21:31)
[2017-12-01] MEDS: SITAGLIPTIN 50MG TABLET PO SCH (09:03)
[2017-12-01] MEDS: MUPIROCIN OINT 2%, 22GM NAS SCH (09:03)
[2017-12-01] MEDS: ASPIRIN 81 MG TABLET EC PO SCH (09:03)
[2017-12-01] MEDS: DILTIAZEM 120 MG CAP.ER.24H PO SCH (09:03)
[2017-12-01] MEDS: ISOSORBIDE MONONITRATE ER 30 MG TABLET PO SCH (09:03)
[2017-12-01] MEDS: TICAGRELOR 90 MG TABLET PO SCH ×2 (09:03→21:31)
[2017-12-01] MEDS: AMIODARONE 200 MG TABLET PO SCH ×2 (09:04→21:32)
[2017-12-01] MEDS: HYDROcodone/APAP 5/325 TABLET PO PRN (09:10)
[2017-12-01 13:05] VITALS: BP 110/78
[2017-12-01] MEDS ORDERED: GLIMEPIRIDE 1 MG TABLET PO SCH (13:30)
[2017-12-01] MEDS ORDERED: WARFARIN 2.5 MG TABLET PO-COUM ONE (18:00)
[2017-12-01 19:44] VITALS: BP 108/70
[2017-12-01] MEDS: SIMVASTATIN 40 MG TABLET PO SCH (21:32)
[2017-12-01] MEDS: HYDROcodone/APAP 10/325 MG TABLET PO PRN (21:51)
[2017-12-02 02:28] VITALS: BP 116/69
[2017-12-02 04:38] LABS: INTERNATIONAL NORMALIZED RATIO 4.24 (0.93-1.1); PROTHROMBIN TIME 42.9 Seconds (9.6-11.5)
[2017-12-02 04:49] LABS: ANION GAP 7 mmol/L (5-15); CALCIUM 7.9 mg/dL (8.5-10.1); CHLORIDE 101 mmol/L (98-107)
[2017-12-02 04:50] LABS: CREATININE 1.78 mg/dL (0.7-1.3)
[2017-12-02] MEDS: INSULIN LISPRO 100 UNITS/ML, PEN SQ-INSULIN SCH ×4 (07:00→21:00)
[2017-12-02] MEDS: HYDROcodone/APAP 5/325 TABLET PO PRN (08:24)
[2017-12-02] MEDS: SODIUM CHLORIDE FLUSH 10ML SYR IVF SCH ×2 (08:24→21:11)
[2017-12-02 08:32] VITALS: BP 129/78
[2017-12-02] MEDS: WARFARIN BIOPROSTHETIC VALVE PROTOCOL 2-3 XX SCH (09:00)
[2017-12-02] MEDS: ASPIRIN 81 MG TABLET EC PO SCH (09:00)
[2017-12-02] MEDS: AMIODARONE 200 MG TABLET PO SCH (09:00)
[2017-12-02] MEDS: DILTIAZEM 120 MG CAP.ER.24H PO SCH (09:00)
[2017-12-02] MEDS: DOCUSATE 100 MG CAPSULE PO SCH ×3 (09:00→21:00)
[2017-12-02] MEDS ORDERED: SITAGLIPTIN 50MG TABLET PO SCH (11:30)
[2017-12-02] MEDS: GLIMEPIRIDE 1 MG TABLET PO SCH (12:58)
[2017-12-02 13:04] VITALS: BP 121/78
[2017-12-02] MEDS ORDERED: HOLD WARFARIN MC PRN (14:00)
[2017-12-02] MEDS: TICAGRELOR 90 MG TABLET PO SCH ×2 (14:02→21:08)
[2017-12-02] MEDS: ISOSORBIDE MONONITRATE ER 30 MG TABLET PO SCH (14:03)
[2017-12-02] MEDS: metFORMIN 500 MG TABLET PO SCH (16:54)
[2017-12-02 18:46] VITALS: BP 115/70
[2017-12-02] MEDS: SIMVASTATIN 40 MG TABLET PO SCH (21:09)
[2017-12-02] MEDS: HYDROcodone/APAP 10/325 MG TABLET PO PRN (21:09)
[2017-12-03 02:37] VITALS: BP 135/84
[2017-12-03] MEDS: HYDROcodone/APAP 10/325 MG TABLET PO PRN ×2 (02:45→20:30)
[2017-12-03 05:02] LABS: BASOPHILS # (AUTO) 0.04 x10^3/uL (0-0.1); BASOPHILS % (AUTO) 1 % (0-1); EOSINOPHILS # (AUTO) 0.39 x10^3/uL (0-0.4); EOSINOPHILS % (AUTO) 5 % (1-7); LYMPHOCYTES # (AUTO) 1.05 x10^3/uL (1-3.4); LYMPHOCYTES % (AUTO) 14 % (22-44); MD NO; MEAN CORPUSCULAR HEMOGLOBIN 28.7 pg (27.5-34.5); MEAN CORPUSCULAR HGB CONC 32.4 g/dL (33.2-36.2); MEAN CORPUSCULAR VOLUME 88.6 fL (81-97); MEAN PLATELET VOLUME 7.8 fL (7.4-10.4); MONOCYTES # (AUTO) 1.03 x10^3/uL (0.2-0.8); MONOCYTES % (AUTO) 14 % (2-9); NEUTROPHILS # (AUTO) 4.84 x10^3/uL (1.8-6.8); NEUTROPHILS % (AUTO) 66 % (42-75); PLATELET COUNT 249 x10^3/uL (130-400); RED CELL DISTRIBUTION WIDTH 14.8 % (9.4-14.8)
[2017-12-03 05:04] LABS: INTERNATIONAL NORMALIZED RATIO 3.41 (0.93-1.1); PROTHROMBIN TIME 34.6 Seconds (9.6-11.5)
[2017-12-03 05:11] LABS: ALANINE AMINOTRANSFERASE 54 U/L (12-78); ALBUMIN 2.5 g/dL (3.4-5.0); ANION GAP 6 mmol/L (5-15); CALCIUM 7.8 mg/dL (8.5-10.1); CHLORIDE 102 mmol/L (98-107); CREATININE 1.34 mg/dL (0.7-1.3)
[2017-12-03 05:13] LABS: ALKALINE PHOSPHATASE 164 U/L (45-117); BILIRUBIN,TOTAL 0.6 mg/dL (0.2-1.0)
[2017-12-03 07:28] VITALS: BP 132/80
[2017-12-03] MEDS: INSULIN LISPRO 100 UNITS/ML, PEN SQ-INSULIN SCH ×4 (07:57→20:35)
[2017-12-03] MEDS: TICAGRELOR 90 MG TABLET PO SCH ×2 (08:14→20:29)
[2017-12-03] MEDS: GLIMEPIRIDE 1 MG TABLET PO SCH (08:14)
[2017-12-03] MEDS: SODIUM CHLORIDE FLUSH 10ML SYR IVF SCH ×2 (08:14→20:29)
[2017-12-03] MEDS: DOCUSATE 100 MG CAPSULE PO SCH ×2 (08:14→20:29)
[2017-12-03] MEDS: ASPIRIN 81 MG TABLET EC PO SCH (08:14)
[2017-12-03] MEDS: metFORMIN 500 MG TABLET PO SCH (08:14)
[2017-12-03] MEDS: ISOSORBIDE MONONITRATE ER 30 MG TABLET PO SCH (08:14)
[2017-12-03] MEDS: WARFARIN BIOPROSTHETIC VALVE PROTOCOL 2-3 XX SCH (08:15)
[2017-12-03] MEDS ORDERED: HOLD COUMADIN MC PRN (08:30)
[2017-12-03] MEDS: AMIODARONE 200 MG TABLET PO SCH ×2 (10:07→20:30)
[2017-12-03] MEDS: SITAGLIPTIN 50MG TABLET PO SCH (11:38)
[2017-12-03] MEDS: ACETAMINOPHEN 325 MG TABLET PO PRN (11:42)
[2017-12-03 13:43] VITALS: BP 105/66
[2017-12-03] MEDS ORDERED: metFORMIN 500 MG TABLET PO SCH (17:00)
[2017-12-03 20:13] VITALS: BP 166/91
[2017-12-03] MEDS: SIMVASTATIN 40 MG TABLET PO SCH (20:30)
[2017-12-04 01:47] VITALS: BP 136/74
[2017-12-04] MEDS: HYDROcodone/APAP 10/325 MG TABLET PO PRN (05:23)
[2017-12-04 05:51] LABS: INTERNATIONAL NORMALIZED RATIO 2.79 (0.93-1.1); PROTHROMBIN TIME 28.4 Seconds (9.6-11.5)
[2017-12-04 05:57] LABS: LYMPHOCYTES # (AUTO) 0.87 x10^3/uL (1-3.4); MD NO; MEAN CORPUSCULAR HEMOGLOBIN 28.7 pg (27.5-34.5); MEAN CORPUSCULAR VOLUME 88.7 fL (81-97)
[2017-12-04 06:00] LABS: CHLORIDE 104 mmol/L (98-107)
[2017-12-04 06:09] LABS: ANION GAP 10 mmol/L (5-15); CALCIUM 8.3 mg/dL (8.5-10.1); CREATININE 1.15 mg/dL (0.7-1.3)
[2017-12-04 06:15] LABS: BASOPHILS # (AUTO) 0.02 x10^3/uL (0-0.1); BASOPHILS % (AUTO) 0 % (0-1); EOSINOPHILS # (AUTO) 0.42 x10^3/uL (0-0.4); EOSINOPHILS % (AUTO) 5 % (1-7); LYMPHOCYTES % (AUTO) 11 % (22-44); MEAN CORPUSCULAR HGB CONC 32.4 g/dL (33.2-36.2); MONOCYTES # (AUTO) 0.99 x10^3/uL (0.2-0.8); MONOCYTES % (AUTO) 13 % (2-9); NEUTROPHILS # (AUTO) 5.63 x10^3/uL (1.8-6.8); NEUTROPHILS % (AUTO) 71 % (42-75); PLATELET COUNT 275 x10^3/uL (130-400)
[2017-12-04] MEDS: INSULIN LISPRO 100 UNITS/ML, PEN SQ-INSULIN SCH ×4 (07:00→20:57)
[2017-12-04 08:04] VITALS: BP 128/75
[2017-12-04] MEDS: AMIODARONE 200 MG TABLET PO SCH ×2 (09:07→20:58)
[2017-12-04] MEDS: DOCUSATE 100 MG CAPSULE PO SCH ×2 (09:07→20:58)
[2017-12-04] MEDS: TICAGRELOR 90 MG TABLET PO SCH ×2 (09:07→20:57)
[2017-12-04] MEDS: GLIMEPIRIDE 1 MG TABLET PO SCH (09:07)
[2017-12-04] MEDS: ASPIRIN 81 MG TABLET EC PO SCH (09:08)
[2017-12-04] MEDS: ISOSORBIDE MONONITRATE ER 30 MG TABLET PO SCH (09:10)
[2017-12-04] MEDS: SODIUM CHLORIDE FLUSH 10ML SYR IVF SCH ×2 (09:11→20:57)
[2017-12-04] MEDS: SITAGLIPTIN 50MG TABLET PO SCH (11:36)
[2017-12-04 14:05] VITALS: BP 146/68
[2017-12-04] MEDS: HYDROcodone/APAP 5/325 TABLET PO PRN ×2 (16:02→20:57)
[2017-12-04] MEDS ORDERED: WARFARIN 1 MG TABLET PO-COUM ONE (18:00)
[2017-12-04 20:36] VITALS: BP 113/72
[2017-12-04] MEDS: SIMVASTATIN 40 MG TABLET PO SCH (20:57)
[2017-12-05 01:59] VITALS: BP 135/87
[2017-12-05 04:50] LABS: BASOPHILS # (AUTO) 0.05 x10^3/uL (0-0.1); BASOPHILS % (AUTO) 1 % (0-1); EOSINOPHILS # (AUTO) 0.41 x10^3/uL (0-0.4); EOSINOPHILS % (AUTO) 6 % (1-7); LYMPHOCYTES # (AUTO) 0.98 x10^3/uL (1-3.4); LYMPHOCYTES % (AUTO) 13 % (22-44); MD NO; MEAN CORPUSCULAR HEMOGLOBIN 28.5 pg (27.5-34.5); MEAN CORPUSCULAR HGB CONC 32.1 g/dL (33.2-36.2); MEAN CORPUSCULAR VOLUME 88.7 fL (81-97); MEAN PLATELET VOLUME 7.7 fL (7.4-10.4); MONOCYTES # (AUTO) 0.84 x10^3/uL (0.2-0.8); MONOCYTES % (AUTO) 11 % (2-9); NEUTROPHILS # (AUTO) 5.17 x10^3/uL (1.8-6.8); NEUTROPHILS % (AUTO) 69 % (42-75); PLATELET COUNT 299 x10^3/uL (130-400); RED BLOOD COUNT 4.46 x10^6/uL (4.38-5.82); RED CELL DISTRIBUTION WIDTH 15.2 % (9.4-14.8)
[2017-12-05 04:57] LABS: INTERNATIONAL NORMALIZED RATIO 2.31 (0.93-1.1); PROTHROMBIN TIME 23.6 Seconds (9.6-11.5)
[2017-12-05 04:59] LABS: ANION GAP 6 mmol/L (5-15); CALCIUM 8.4 mg/dL (8.5-10.1); CHLORIDE 104 mmol/L (98-107); CREATININE 1.18 mg/dL (0.7-1.3)
[2017-12-05] MEDS: INSULIN LISPRO 100 UNITS/ML, PEN SQ-INSULIN SCH ×4 (07:00→21:14)
[2017-12-05 08:12] VITALS: BP 115/68
[2017-12-05] MEDS ORDERED: FUROSEMIDE 20 MG/2 ML IV SCH (09:00)
[2017-12-05] MEDS: DOCUSATE 100 MG CAPSULE PO SCH ×2 (09:22→21:13)
[2017-12-05] MEDS: ASPIRIN 81 MG TABLET EC PO SCH (09:22)
[2017-12-05] MEDS: GLIMEPIRIDE 1 MG TABLET PO SCH (09:22)
[2017-12-05] MEDS: ISOSORBIDE MONONITRATE ER 30 MG TABLET PO SCH (09:23)
[2017-12-05] MEDS: AMIODARONE 200 MG TABLET PO SCH ×2 (09:23→21:13)
[2017-12-05] MEDS: TICAGRELOR 90 MG TABLET PO SCH ×2 (09:23→21:13)
[2017-12-05] MEDS: SODIUM CHLORIDE FLUSH 10ML SYR IVF SCH ×2 (09:24→21:14)
[2017-12-05] MEDS ORDERED: SODIUM CHLORIDE 0.9% 1,000 ML IV SCH (09:35)
[2017-12-05] MEDS ORDERED: CEFAZOLIN PMX 1GM/50ML 50 ML IVPB ONE (10:00)
[2017-12-05] MEDS: SITAGLIPTIN 50MG TABLET PO SCH (11:50)
[2017-12-05 15:56] VITALS: BP 124/73
[2017-12-05] MEDS: ACETAMINOPHEN 325 MG TABLET PO PRN ×2 (16:38→21:13)
[2017-12-05 20:00] VITALS: BP 114/73
[2017-12-05] MEDS: SIMVASTATIN 40 MG TABLET PO SCH (21:13)
[2017-12-06 01:32] VITALS: BP 135/79
[2017-12-06 05:11] LABS: INTERNATIONAL NORMALIZED RATIO 1.84 (0.93-1.1); PROTHROMBIN TIME 18.9 Seconds (9.6-11.5)
[2017-12-06 05:19] LABS: ANION GAP 6 mmol/L (5-15); CALCIUM 8.1 mg/dL (8.5-10.1); CHLORIDE 103 mmol/L (98-107)
[2017-12-06 05:21] LABS: CREATININE 1.24 mg/dL (0.7-1.3)
[2017-12-06] MEDS: INSULIN LISPRO 100 UNITS/ML, PEN SQ-INSULIN SCH ×4 (07:00→21:27)
[2017-12-06 07:40] VITALS: BP 142/87
[2017-12-06] MEDS: GLIMEPIRIDE 1 MG TABLET PO SCH (08:00)
[2017-12-06] MEDS: SODIUM CHLORIDE 0.9% 1,000 ML IV SCH ×4 (09:35→17:40)
[2017-12-06] MEDS: DOCUSATE 100 MG CAPSULE PO SCH ×2 (09:48→21:28)
[2017-12-06] MEDS: ISOSORBIDE MONONITRATE ER 30 MG TABLET PO SCH (09:50)
[2017-12-06] MEDS: AMIODARONE 200 MG TABLET PO SCH ×2 (09:51→21:28)
[2017-12-06] MEDS: ACETAMINOPHEN 325 MG TABLET PO PRN (09:52)
[2017-12-06] MEDS: TICAGRELOR 90 MG TABLET PO SCH (09:56)
[2017-12-06] MEDS: ASPIRIN 81 MG TABLET EC PO SCH (09:56)
[2017-12-06] MEDS: SODIUM CHLORIDE FLUSH 10ML SYR IVF SCH ×2 (09:57→19:53)
[2017-12-06] MEDS ORDERED: CEFAZOLIN PMX 1GM/50ML 50 ML IVPB ONE (10:30)
[2017-12-06] MEDS: SITAGLIPTIN 50MG TABLET PO SCH (11:30)
[2017-12-06] MEDS ORDERED: CEFAZOLIN PMX 1GM/50ML 50 ML ONE (11:53)
[2017-12-06] MEDS ORDERED: CEFAZOLIN 1,000 MG ONE (11:53)
[2017-12-06] MEDS ORDERED: LIDOCAINE/PF 1%, 30ML ONE (11:53)
[2017-12-06] MEDS ORDERED: MIDAZOLAM 1 MG/ML, 5ML ONE (11:53)
[2017-12-06] MEDS ORDERED: FENTANYL PF 100 MCG/2ML ONE (11:53)
[2017-12-06] MEDS ORDERED: WARFARIN BIOPROSTHETIC VALVE PROTOCOL 2-3 XX PRN (14:00)
[2017-12-06 14:39] VITALS: BP 132/82
[2017-12-06] MEDS: FUROSEMIDE 20 MG/2 ML IV SCH (14:40)
[2017-12-06] MEDS ORDERED: WARFARIN 3 MG TABLET PO-COUM ONE (18:00)
[2017-12-06 19:22] VITALS: BP 144/87
[2017-12-06] MEDS: CEFAZOLIN PMX 1GM/50ML 50 ML IVPB SCH (19:54)
[2017-12-06] MEDS: SIMVASTATIN 40 MG TABLET PO SCH (21:28)
[2017-12-07 00:55] VITALS: BP 145/88
[2017-12-07] MEDS: SODIUM CHLORIDE 0.9% 1,000 ML IV SCH ×4 (01:35→08:36)
[2017-12-07] MEDS: CEFAZOLIN PMX 1GM/50ML 50 ML IVPB SCH ×2 (04:04→12:10)
[2017-12-07 05:06] LABS: INTERNATIONAL NORMALIZED RATIO 1.88 (0.93-1.1); PROTHROMBIN TIME 19.3 Seconds (9.6-11.5)
[2017-12-07 05:13] LABS: ANION GAP 8 mmol/L (5-15); CALCIUM 8.5 mg/dL (8.5-10.1); CHLORIDE 104 mmol/L (98-107); CREATININE 1.39 mg/dL (0.7-1.3)
[2017-12-07] MEDS: INSULIN LISPRO 100 UNITS/ML, PEN SQ-INSULIN SCH ×4 (07:00→21:08)
[2017-12-07 07:26] VITALS: BP 138/80
[2017-12-07] MEDS: FUROSEMIDE 20 MG/2 ML IV SCH (08:34)
[2017-12-07] MEDS: CLOPIDOGREL 75 MG TABLET PO SCH (08:34)
[2017-12-07] MEDS: ASPIRIN 81 MG TABLET EC PO SCH (08:34)
[2017-12-07] MEDS: ISOSORBIDE MONONITRATE ER 30 MG TABLET PO SCH (08:34)
[2017-12-07] MEDS: DOCUSATE 100 MG CAPSULE PO SCH ×2 (08:34→21:07)
[2017-12-07] MEDS: SODIUM CHLORIDE FLUSH 10ML SYR IVF SCH ×2 (08:35→21:10)
[2017-12-07] MEDS: AMIODARONE 200 MG TABLET PO SCH (08:35)
[2017-12-07] MEDS: GLIMEPIRIDE 1 MG TABLET PO SCH (08:35)
[2017-12-07] MEDS: SITAGLIPTIN 50MG TABLET PO SCH (12:10)
[2017-12-07] MEDS: METOPROLOL SUCCINATE 25 MG TAB.ER.24H PO SCH (12:23)
[2017-12-07 12:47] VITALS: BP 117/69
[2017-12-07] MEDS ORDERED: WARFARIN 2 MG TABLET PO-COUM ONE (18:00)
[2017-12-07 19:10] VITALS: BP 119/74
[2017-12-07] MEDS ORDERED: ATORVASTATIN 40 MG TABLET PO SCH (21:00)
[2017-12-08 00:40] VITALS: BP 139/85
[2017-12-08 05:43] LABS: INTERNATIONAL NORMALIZED RATIO 2.07 (0.93-1.1); PROTHROMBIN TIME 21.2 Seconds (9.6-11.5)
[2017-12-08 05:45] LABS: ANION GAP 7 mmol/L (5-15); CALCIUM 8.5 mg/dL (8.5-10.1); CHLORIDE 105 mmol/L (98-107)
[2017-12-08 05:47] LABS: CREATININE 1.24 mg/dL (0.7-1.3)
[2017-12-08] MEDS: METOPROLOL SUCCINATE 25 MG TAB.ER.24H PO SCH (06:01)
[2017-12-08] MEDS: INSULIN LISPRO 100 UNITS/ML, PEN SQ-INSULIN SCH (07:00)
[2017-12-08] MEDS ORDERED: DOCU-131 PO (08:24)
[2017-12-08] MEDS ORDERED: CLOP75TA PO (08:24)
[2017-12-08] MEDS ORDERED: METO25TA91 PO (08:24)
[2017-12-08] MEDS ORDERED: AMIO200T42 PO (08:24)
[2017-12-08] MEDS ORDERED: ASPI-621 PO (08:24)
[2017-12-08] MEDS ORDERED: GLIM1TAB PO (08:24)
[2017-12-08] MEDS ORDERED: SITA50TA PO (08:24)
[2017-12-08 08:53] VITALS: BP 132/72
[2017-12-08] MEDS: SODIUM CHLORIDE FLUSH 10ML SYR IVF SCH (09:00)
[2017-12-08] MEDS ORDERED: AMIODARONE 200 MG TABLET PO SCH (09:00)
[2017-12-08] MEDS: SITAGLIPTIN 50MG TABLET PO SCH (09:50)
[2017-12-08] MEDS: DOCUSATE 100 MG CAPSULE PO SCH (09:50)
[2017-12-08] MEDS: FUROSEMIDE 20 MG/2 ML IV SCH (09:50)
[2017-12-08] MEDS: GLIMEPIRIDE 1 MG TABLET PO SCH (09:50)
[2017-12-08] MEDS: ASPIRIN 81 MG TABLET EC PO SCH (09:50)
[2017-12-08] MEDS: ISOSORBIDE MONONITRATE ER 30 MG TABLET PO SCH (09:50)
[2017-12-08] MEDS: CLOPIDOGREL 75 MG TABLET PO SCH (09:50)
[2017-12-08] MEDS ORDERED: WARFARIN 2.5 MG TABLET PO-COUM ONE (18:00)
== END 2017-12-08 12:08 | disposition home health service (06) | DRG 219 ==
LOC: 5SO 04:20 → CCU 09:47 → 5SO 11-27 16:07 → DCLOUNGE 12-08 11:43
PROVIDERS: ADMIT Thoracic Surgery (Cardiothoracic Vascular Surgery); ATTEND Thoracic Surgery (Cardiothoracic Vascular Surgery)
PROC: 5A1221Z Performance of Cardiac Output, Continuous (ICD-10-PCS; 2017-11-26)
PROC: 02L70CK Occlusion of Left Atrial Appendage with Extraluminal Device, Open Approach (ICD-10-PCS; 2017-11-26)
PROC: 02580ZZ Destruction of Conduction Mechanism, Open Approach (ICD-10-PCS; 2017-11-26)
PROC: B246ZZ4 Ultrasonography of Right and Left Heart, Transesophageal (ICD-10-PCS; 2017-11-26)
PROC: 30233R1 Transfusion of Nonautologous Platelets into Peripheral Vein, Percutaneous Approach (ICD-10-PCS; 2017-11-26)
PROC: 02QX0ZZ Repair Thoracic Aorta, Ascending/Arch, Open Approach (ICD-10-PCS; 2017-11-26)
PROC: X2RF032 Replacement of Aortic Valve using Zooplastic Tissue, Rapid Deployment Technique, Open Approach, New Technology Group 2 (ICD-10-PCS; principal; 2017-11-26 08:00)
PROC: 0JH606Z Insertion of Pacemaker, Dual Chamber into Chest Subcutaneous Tissue and Fascia, Open Approach (ICD-10-PCS; 2017-12-06)
PROC: 02H63JZ Insertion of Pacemaker Lead into Right Atrium, Percutaneous Approach (ICD-10-PCS; 2017-12-06)
PROC: 02HK3JZ Insertion of Pacemaker Lead into Right Ventricle, Percutaneous Approach (ICD-10-PCS; 2017-12-06)
PROC: 5A2204Z Restoration of Cardiac Rhythm, Single (ICD-10-PCS; 2017-12-06)
DX: I35.0 Nonrheumatic aortic (valve) stenosis (principal); N17.0 Acute kidney failure with tubular necrosis; I27.21 Secondary pulmonary arterial hypertension; I48.0 Paroxysmal atrial fibrillation; I11.0 Hypertensive heart disease with heart failure; I50.42 Chronic combined systolic (congestive) and diastolic (congestive) heart failure; I49.5 Sick sinus syndrome; B35.3 Tinea pedis; I48.92 Unspecified atrial flutter; I71.2 Thoracic aortic aneurysm, without rupture; E11.9 Type 2 diabetes mellitus without complications; E78.5 Hyperlipidemia, unspecified; I25.10 Atherosclerotic heart disease of native coronary artery without angina pectoris; I34.0 Nonrheumatic mitral (valve) insufficiency; I44.0 Atrioventricular block, first degree; R79.1 Abnormal coagulation profile; Z86.73 Personal history of transient ischemic attack (TIA), and cerebral infarction without residual deficits; Z79.01 Long term (current) use of anticoagulants; Z79.02 Long term (current) use of antithrombotics/antiplatelets; Z79.84 Long term (current) use of oral hypoglycemic drugs; Z82.49 Family history of ischemic heart disease and other diseases of the circulatory system; Z86.79 Personal history of other diseases of the circulatory system; Z95.5 Presence of coronary angioplasty implant and graft; Z79.899 Other long term (current) drug therapy; S20.219A Contusion of unspecified front wall of thorax, initial encounter
CPT/HCPCS: 33208; 36415; 36600; 71045; 71046; 80048; 80053; 81001; 82040; 82330; 82800; 82803; 82810; 82947; 82962; 83036; 83735; 84100; 84132; 84295; 85014; 85018; 85025; 85049; 85347; 85610; 85730; 86850; 86900; 86923; 87081; 88304; 88305; 92960; 93005; 93312; 93321; 93325; 93880; 94002; 99156; 99157; C1768; C1779; C1785; C1892; J0690; J0697; J1644; J1815; J1940; J2250; J2704; J3010; J3370; J3475; J3480; J3490; J7120; P9045; P9047; C1751; C1760; C1762; J0171; J2370; J2930; J7050; P9035

== ENCOUNTER 2018-01-01 08:53 | Inpatient (IN) | payer MEDICARE ==
[~2018-01-01] VITALS: Ht 185.4 cm; Wt 112.4 kg
[~2018-01-01 08:53] MED LIST changes: +AMIO200T42 PO; +ASPI-621 PO; +CLOP75TA PO; +DOCU-131 PO; +GLIM1TAB PO; +METO25TA91 PO; +SITA50TA PO
[2018-01-01 09:59] LABS: BASOPHILS # (AUTO) 0.03 x10^3/uL (0-0.1); BASOPHILS % (AUTO) 1 % (0-1); EOSINOPHILS # (AUTO) 0.09 x10^3/uL (0-0.4); EOSINOPHILS % (AUTO) 1 % (1-7); LYMPHOCYTES # (AUTO) 0.74 x10^3/uL (1-3.4); LYMPHOCYTES % (AUTO) 11 % (22-44); MD NO; MEAN CORPUSCULAR HEMOGLOBIN 27.3 pg (27.5-34.5); MEAN CORPUSCULAR HGB CONC 31.3 g/dL (33.2-36.2); MEAN PLATELET VOLUME 7.7 fL (7.4-10.4); MONOCYTES # (AUTO) 0.66 x10^3/uL (0.2-0.8); MONOCYTES % (AUTO) 10 % (2-9); NEUTROPHILS # (AUTO) 5.06 x10^3/uL (1.8-6.8); NEUTROPHILS % (AUTO) 77 % (42-75); PLATELET COUNT 276 x10^3/uL (130-400); RED BLOOD COUNT 4.85 x10^6/uL (4.38-5.82); RED CELL DISTRIBUTION WIDTH 17.4 % (9.4-14.8)
[2018-01-01] MEDS ORDERED: SODIUM CHLORIDE FLUSH 10ML SYR IVF ONE (10:00)
[2018-01-01 10:09] LABS: INTERNATIONAL NORMALIZED RATIO 3.02 (0.93-1.1); PROTHROMBIN TIME 30.4 Seconds (9.6-11.5)
[2018-01-01 10:12] LABS: ALBUMIN 3.4 g/dL (3.4-5.0); ANION GAP 7 mmol/L (5-15); CALCIUM 8.2 mg/dL (8.5-10.1); CHLORIDE 107 mmol/L (98-107); CREATININE 1.87 mg/dL (0.7-1.3)
[2018-01-01 10:16] LABS: TROPONIN I < 0.015 ng/mL (0.000-0.045)
[2018-01-01] MEDS ORDERED: SODIUM CHLORIDE FLUSH 10ML SYR IVF PRN ×2 (11:30)
[2018-01-01] MEDS ORDERED: SITAGLIPTIN 50MG TABLET PO SCH (12:30)
[2018-01-01 15:15] VITALS: BP 135/81
[2018-01-01] MEDS: FUROSEMIDE 20 MG/2 ML IV SCH (17:23)
[2018-01-01] MEDS ORDERED: WARFARIN 2.5 MG TABLET PO-COUM ONE (18:00)
[2018-01-01 20:40] VITALS: BP 114/79
[2018-01-01] MEDS: SIMVASTATIN 40 MG TABLET PO SCH (20:58)
[2018-01-01] MEDS: DOCUSATE 100 MG CAPSULE PO SCH (20:58)
[2018-01-02 01:03] VITALS: BP 127/84
[2018-01-02] MEDS: METOPROLOL SUCCINATE 25 MG TAB.ER.24H PO SCH (05:35)
[2018-01-02 05:40] LABS: BASOPHILS # (AUTO) 0.03 x10^3/uL (0-0.1); BASOPHILS % (AUTO) 0 % (0-1); EOSINOPHILS # (AUTO) 0.37 x10^3/uL (0-0.4); EOSINOPHILS % (AUTO) 5 % (1-7); LYMPHOCYTES # (AUTO) 1.47 x10^3/uL (1-3.4); LYMPHOCYTES % (AUTO) 21 % (22-44); MD NO; MEAN CORPUSCULAR HEMOGLOBIN 26.9 pg (27.5-34.5); MEAN CORPUSCULAR HGB CONC 30.9 g/dL (33.2-36.2); MEAN CORPUSCULAR VOLUME 87.1 fL (81-97); MEAN PLATELET VOLUME 7.7 fL (7.4-10.4); MONOCYTES # (AUTO) 0.89 x10^3/uL (0.2-0.8); MONOCYTES % (AUTO) 13 % (2-9); NEUTROPHILS % (AUTO) 60 % (42-75); PLATELET COUNT 247 x10^3/uL (130-400); RED BLOOD COUNT 4.65 x10^6/uL (4.38-5.82); RED CELL DISTRIBUTION WIDTH 17.1 % (9.4-14.8)
[2018-01-02 05:44] LABS: INTERNATIONAL NORMALIZED RATIO 3.14 (0.93-1.1); PROTHROMBIN TIME 31.6 Seconds (9.6-11.5)
[2018-01-02 05:54] LABS: CHLORIDE 107 mmol/L (98-107)
[2018-01-02 06:04] LABS: ANION GAP 6 mmol/L (5-15); CALCIUM 8.2 mg/dL (8.5-10.1); CREATININE 1.76 mg/dL (0.7-1.3)
[2018-01-02 06:38] VITALS: BP 121/82
[2018-01-02] MEDS: GLIMEPIRIDE 1 MG TABLET PO SCH (07:57)
[2018-01-02] MEDS: FUROSEMIDE 20 MG/2 ML IV SCH ×2 (07:57→17:04)
[2018-01-02] MEDS: POTASSIUM CHLORIDE 20 MEQ TAB.ER.PRT PO SCH (07:58)
[2018-01-02] MEDS: SITAGLIPTIN 50MG TABLET PO SCH (07:58)
[2018-01-02] MEDS: CLOPIDOGREL 75 MG TABLET PO SCH (07:58)
[2018-01-02] MEDS: DOCUSATE 100 MG CAPSULE PO SCH ×2 (07:58→20:31)
[2018-01-02] MEDS: AMIODARONE 200 MG TABLET PO SCH ×2 (07:58→08:06)
[2018-01-02] MEDS: ASPIRIN 81 MG TABLET EC PO SCH (07:59)
[2018-01-02] MEDS: ISOSORBIDE MONONITRATE ER 30 MG TABLET PO SCH (07:59)
[2018-01-02] MEDS: WARFARIN MECH. VALVE PROTOCOL 2.5 to 3.5 XX SCH (09:00)
[2018-01-02 14:30] VITALS: BP 110/68
[2018-01-02] MEDS ORDERED: WARFARIN 2.5 MG TABLET PO-COUM ONE ×2 (18:00)
[2018-01-02 19:31] VITALS: BP 104/67
[2018-01-02] MEDS: SIMVASTATIN 40 MG TABLET PO SCH (20:31)
[2018-01-03 01:17] VITALS: BP 117/82
[2018-01-03 05:18] LABS: INTERNATIONAL NORMALIZED RATIO 2.74 (0.93-1.1); PROTHROMBIN TIME 27.7 Seconds (9.6-11.5)
[2018-01-03 05:23] LABS: ANION GAP 8 mmol/L (5-15); CHLORIDE 105 mmol/L (98-107); CREATININE 1.52 mg/dL (0.7-1.3)
[2018-01-03] MEDS: METOPROLOL SUCCINATE 25 MG TAB.ER.24H PO SCH (05:29)
[2018-01-03 06:58] VITALS: BP 120/72
[2018-01-03 07:38] VITALS: BP 118/83
[2018-01-03] MEDS: FUROSEMIDE 20 MG/2 ML IV SCH ×2 (07:39→16:52)
[2018-01-03] MEDS: GLIMEPIRIDE 1 MG TABLET PO SCH (07:40)
[2018-01-03] MEDS: ASPIRIN 81 MG TABLET EC PO SCH (07:40)
[2018-01-03] MEDS: AMIODARONE 200 MG TABLET PO SCH (07:40)
[2018-01-03] MEDS: WARFARIN MECH. VALVE PROTOCOL 2.5 to 3.5 XX SCH (07:40)
[2018-01-03] MEDS: POTASSIUM CHLORIDE 20 MEQ TAB.ER.PRT PO SCH (07:40)
[2018-01-03] MEDS: ISOSORBIDE MONONITRATE ER 30 MG TABLET PO SCH (07:40)
[2018-01-03] MEDS: CLOPIDOGREL 75 MG TABLET PO SCH (07:40)
[2018-01-03] MEDS: SITAGLIPTIN 50MG TABLET PO SCH (07:40)
[2018-01-03] MEDS: DOCUSATE 100 MG CAPSULE PO SCH (07:40)
[2018-01-03 12:41] VITALS: BP 103/66
[2018-01-03] MEDS ORDERED: FURO-92 PO (17:04)
[2018-01-03] MEDS ORDERED: LOSA25TA2 PO (17:04)
[2018-01-03] MEDS ORDERED: MAGN64TA7 PO (17:04)
[2018-01-03] MEDS ORDERED: POTA20TA6 PO ×2 (17:04→17:13)
[2018-01-03] MEDS ORDERED: WARFARIN 2 MG TABLET PO-COUM ONE (18:00)
== END 2018-01-03 18:10 | disposition home health service (06) | DRG 291 ==
LOC: ED 10:09 → EDIP 11:08 → 4EST 14:57
PROVIDERS: ADMIT Hospitalist; ATTEND Hospitalist
DX: I11.0 Hypertensive heart disease with heart failure (principal); N17.0 Acute kidney failure with tubular necrosis; D68.69 Other thrombophilia; J98.11 Atelectasis; I50.43 Acute on chronic combined systolic (congestive) and diastolic (congestive) heart failure; I25.10 Atherosclerotic heart disease of native coronary artery without angina pectoris; Z86.73 Personal history of transient ischemic attack (TIA), and cerebral infarction without residual deficits; Z86.79 Personal history of other diseases of the circulatory system; E04.9 Nontoxic goiter, unspecified; E11.9 Type 2 diabetes mellitus without complications; E78.5 Hyperlipidemia, unspecified; I07.1 Rheumatic tricuspid insufficiency; I27.20 Pulmonary hypertension, unspecified; I34.0 Nonrheumatic mitral (valve) insufficiency; I48.2 Chronic atrial fibrillation; Z82.49 Family history of ischemic heart disease and other diseases of the circulatory system; Z95.2 Presence of prosthetic heart valve
CPT/HCPCS: 36415; 71046; 71250; 80048; 82040; 83735; 83880; 84100; 84484; 85025; 85610; 85730; 93005; 93306; 99285; J1940

== ENCOUNTER 2019-08-13 13:39 | Inpatient (IN) | payer MEDICARE ==
[~2019-08-13] VITALS: Ht 185.4 cm; Wt 102.5 kg
[~2019-08-13 13:39] MED LIST changes: -ASPI-621 PO; +ASPI81TA45 PO; +ETOMIDATE 20 MG/10 ML ONE; +FURO-92 PO; +LOSA100T14 PO; -LOSA100T6 PO; +LOSA25TA2 PO; +MAGN64TA7 PO; +METF500T17 PO; -METF500T4 PO; +PROPOFOL 10 MG/ML, 100ML IV ONE; +SUCCINYLCHOLINE 20 MG/ML, 10ML ONE; +WARF2.5T32 PO; -WARF2.5T73 PO
[2019-08-13] MEDS ORDERED: EPINEPHRINE 1 MG in SODIUM CHLORIDE 0.9% 249 ML IV PRN ×2 (14:00→17:30)
[2019-08-13] MEDS ORDERED: SODIUM CHLORIDE FLUSH 10ML SYR IVF ONE (14:00)
[2019-08-13] MEDS ORDERED: NOREPINEPHRINE 4 MG in SODIUM CHLORIDE 0.9% 246 ML IV PRN (14:00)
[2019-08-13] MEDS ORDERED: DILTIAZEM 5 MG/ML, 5ML ONE (14:22)
--- NOTE | 2019-08-13 14:24 | NUR ---
CENTRAL LINE INSERSTION COMPLETED, CXR COMPLETE, CENTRAL LINE OKAY TO USE PER . PT IS TACHYPNEIC W/ RETRACTIONS, TACHYCARDIC. US IN PROGRESS. PADS BEING PLACED ON PATIENT.
--- NOTE | 2019-08-13 14:28 | NUR ---
Pt verbalizes understanding of intubation, agreeable. Pt's skin pale, mottled. RT at bedside
--- NOTE | 2019-08-13 14:29 | NUR ---
called and spoke with jerzy in [facility] for stat echo
[2019-08-13] MEDS ORDERED: ACETAMINOPHEN 650 MG SUPP ONE (14:30)
[2019-08-13] MEDS ORDERED: KETAMINE 10 MG/ML, 20ML ONE (14:30)
--- NOTE | 2019-08-13 14:38 | NUR ---
dr llanes spoke with dr farmer
--- NOTE | 2019-08-13 14:42 | NUR ---
Pt successfully intubated by Dr. Ramos. 8.0ETT measuring 25cm@lip.
--- NOTE | 2019-08-13 14:46 | NUR ---
1 gram Tylenol [place] administered per Dr. Ramos.
[2019-08-13] MEDS ORDERED: FENTANYL PF 100 MCG/2ML ONE ×2 (14:47→15:44)
--- NOTE | 2019-08-13 14:49 | NUR ---
XRAY AND US IN ROOM.
--- NOTE | 2019-08-13 14:56 | NUR ---
dr llanes spoke with dr christopher
[2019-08-13] MEDS ORDERED: FENTANYL PF 100 MCG/2ML IVPush ONE (15:00)
[2019-08-13] MEDS ORDERED: SUCCINYLCHOLINE 20 MG/ML, 10ML IVPush ONE (15:00)
[2019-08-13] MEDS ORDERED: ETOMIDATE 20 MG/10 ML IVPush ONE (15:00)
[2019-08-13] MEDS ORDERED: DILTIAZEM 5 MG/ML, 5ML IVPush ONE (15:00)
[2019-08-13] MEDS ORDERED: PROPOFOL 100 ML IV SCH (15:00)
[2019-08-13] MEDS ORDERED: ACETAMINOPHEN 650 MG SUPP PR ONE (15:00)
--- NOTE | 2019-08-13 15:25 | NUR ---
Dr. Ramos in to speak with pt's Ricarda, daughter Brenda and son Ramon.
[2019-08-13 15:29] LABS: ANION GAP 23 mmol/L (5-15); CALCIUM 7.8 mg/dL (8.5-10.1); CHLORIDE 99 mmol/L (98-107)
[2019-08-13 15:34] LABS: ALANINE AMINOTRANSFERASE 37 U/L (12-78); ALKALINE PHOSPHATASE 119 U/L (45-117); BILIRUBIN,TOTAL 2.2 mg/dL (0.2-1.0); TOTAL PROTEIN 7.1 g/dL (6.4-8.2)
[2019-08-13] MEDS ORDERED: NOREPINEPHRINE 16 MG in SODIUM CHLORIDE 0.9% 246 ML IV PRN (15:35)
[2019-08-13] MEDS ORDERED: PROPOFOL 100 ML IV PRN (15:35)
[2019-08-13] MEDS ORDERED: VASOPRESSIN 100 UNIT in SODIUM CHLORIDE 0.9% 495 ML IV PRN (15:35)
[2019-08-13] MEDS ORDERED: SODIUM BICARBONATE 1 MEQ/ML, 50ML VIAL ONE ×2 (15:37→16:40)
--- NOTE | 2019-08-13 15:37 | NUR ---
Dr. Doran at bedside to speak with pt's .
--- NOTE | 2019-08-13 15:42 | NUR ---
Dr. Roth at bedside to evaluate pt.
[2019-08-13 15:43] LABS: INTERNATIONAL NORMALIZED RATIO 1.94 (0.93-1.1); PROTHROMBIN TIME 20.7 Seconds (9.6-11.5)
[2019-08-13] MEDS ORDERED: MIDAZOLAM 1 MG/ML, 2ML ONE (15:44)
--- NOTE | 2019-08-13 15:45 | NUR ---
Dr. Bauer in to speak with pt's family
--- NOTE | 2019-08-13 15:47 | NUR ---
Monika ACUNA in OR called, states they are ready for this pt to go up to pre-op
[2019-08-13 15:58] VITALS: BP 110/52
[2019-08-13 15:59] LABS: BASOPHILS % (AUTO) 0 % (0-1); EOSINOPHILS # (AUTO) 0.01 x10^3/uL (0-0.4); EOSINOPHILS % (AUTO) 0 % (1-7); LYMPHOCYTES # (AUTO) 0.25 x10^3/uL (1-3.4); LYMPHOCYTES % (AUTO) 3 % (22-44); MD YES; MEAN CORPUSCULAR HEMOGLOBIN 28.4 pg (27.5-34.5); MEAN CORPUSCULAR HGB CONC 30.8 g/dL (33.2-36.2); MEAN CORPUSCULAR VOLUME 92.2 fL (81-97); MEAN PLATELET VOLUME 8.9 fL (7.4-10.4); MONOCYTES # (AUTO) 0.16 x10^3/uL (0.2-0.8); MONOCYTES % (AUTO) 2 % (2-9); NEUTROPHILS # (AUTO) 7.94 x10^3/uL (1.8-6.8); NEUTROPHILS % (AUTO) 95 % (42-75); PLATELET COUNT 136 x10^3/uL (130-400); RED BLOOD COUNT 5.33 x10^6/uL (4.38-5.82)
[2019-08-13] MEDS ORDERED: LIDOCAINE-MPF 1%, 2ML ENDO PRN (16:00)
[2019-08-13] MEDS ORDERED: SODIUM BICARBONATE 8.4% 150 MEQ in DEXTROSE 5% 1,000 ML IV SCH (16:00)
[2019-08-13] MEDS ORDERED: CEFEPIME 1 GM in DEXTROSE 5% 50 ML IV SCH (16:00)
[2019-08-13] MEDS ORDERED: PHARMACY MAY ADJ FOR RENAL FX MC SCH (16:00)
[2019-08-13] MEDS ORDERED: VANCOMYCIN PER PHARMACY MC PRN ×2 (16:00→16:30)
[2019-08-13] MEDS ORDERED: HEPARIN 5,000 UNITS/ML, 1ML SQ SCH (16:00)
[2019-08-13] MEDS ORDERED: FENTANYL PF 100 MCG/2ML IVPush PRN (16:00)
--- NOTE | 2019-08-13 16:03 | NUR ---
Pt transported to OR by this RN, Naa RN, EMT, Danitza RT. Pt's family updated, they are following us up to OR
[2019-08-13 16:05] LABS: ANISOCYTOSIS 1+; BAND#(MANUAL) 5.12 x10^3/uL; BANDS%(MANUAL) 61 % (0-7); BASOS#(MANUAL) 0.08 x10^3/uL (0-0.1); BASOS% (MANUAL) 1 % (0-1); LYMPH#(MANUAL) 0.34 x10^3/uL (1-3.4); LYMPHS% (MANUAL) 4 % (22-44); METAMYELOCYTES# (MANUAL) 0.25 x10^3/uL (0-0); METAMYELOCYTES% (MANUAL) 3 % (0-1); MONOS#(MANUAL) 0.08 x10^3/uL (0.3-2.7); MONOS% (MANUAL) 1 % (2-9); MYELOCYTES# (MANUAL) 0.08 x10^3/uL (0-0); MYELOCYTES% (MANUAL) 1 % (0-0); NRBC % (MANUAL) 1 % (0-1); SEG#(MANUAL) 2.44 x10^3/uL (1.8-6.8); SEGS% (MANUAL) 29 % (42-75)
[2019-08-13 16:06] LABS: <PLATELET ESTIMATE> ADEQUATE; LARGE PLATELETS 1+; PMNS WITH VACUOLES 1+; POLYCHROMASIA 1+
[2019-08-13] MEDS ORDERED: GLUCAGON 1 MG IM PRN (16:30)
[2019-08-13] MEDS ORDERED: PIPERACILLIN/TAZO/PMX 2.25GM 50 ML IV SCH (16:30)
[2019-08-13] MEDS ORDERED: DEXTROSE 4 GM TAB.CHEW PO PRN (16:30)
[2019-08-13] MEDS ORDERED: DEXTROSE 50%, 50ML SYRINGE IVPush PRN (16:30)
[2019-08-13] MEDS ORDERED: PHARMACY MAY ADJ FOR RENAL FX MC PRN (16:30)
[2019-08-13] MEDS ORDERED: EPINEPHRINE 8 MG in SODIUM CHLORIDE 0.9% 242 ML IV PRN (17:30)
[2019-08-13] MEDS ORDERED: VANCOMYCIN 2,500 MG in SODIUM CHLORIDE 0.9% 500 ML IV ONE (17:45)
[2019-08-13] MEDS ORDERED: SODIUM BICARB 8.4%, 50ML SYRINGE ONE (18:00)
[2019-08-13] MEDS ORDERED: VANCOMYCIN 2,000 MG in SODIUM CHLORIDE 0.9% 500 ML IV ONE (18:00)
[2019-08-13] MEDS ORDERED: SCOPOLAMINE PATCH, 1.5MG PATCH.TD72 TD SCH (18:30)
[2019-08-13] MEDS ORDERED: MORPHINE SULFATE 4 MG/ML, 1ML IVPush PRN ×3 (18:30)
[2019-08-13] MEDS ORDERED: SODIUM BICARB 8.4%, 50ML SYRINGE IVPush ONE (18:30)
[2019-08-13] MEDS ORDERED: ONDANSETRON 2MG/ML, 2ML IVPush PRN (18:30)
[2019-08-13] MEDS ORDERED: LORazepam 2 MG/ML, 1ML IVPush PRN ×2 (18:30)
[2019-08-13] MEDS ORDERED: ATROPINE OPHTH SOLN 1%, 5ML PO PRN (18:30)
[2019-08-13] MEDS ORDERED: MORPHINE 30MG/30ML PCA.SYR IV PRN (18:30)
[2019-08-13] MEDS ORDERED: MORPHINE SULFATE 4 MG/ML, 1ML ONE (18:38)
[2019-08-13] MEDS ORDERED: INSULIN LISPRO 100 UNITS/ML, PEN SQ-INSULIN SCH (21:00)
[2019-08-13] MEDS ORDERED: SODIUM CHLORIDE FLUSH 10ML SYR IVF SCH (21:00)
[2019-08-14] MEDS ORDERED: PANTOPRAZOLE 40 MG IV IV SCH (09:00)
== END 2019-08-13 22:48 | disposition expired | DRG 853 ==
LOC: SUATTDRO 15:52 → OR 16:05 → EDIP 16:33 → ICU 17:01
PROVIDERS: ADMIT Internal Medicine; ATTEND Internal Medicine
PROC: 02HV33Z Insertion of Infusion Device into Superior Vena Cava, Percutaneous Approach (ICD-10-PCS; 2019-08-13)
PROC: B548ZZA Ultrasonography of Superior Vena Cava, Guidance (ICD-10-PCS; 2019-08-13)
PROC: 0BH17EZ Insertion of Endotracheal Airway into Trachea, Via Natural or Artificial Opening (ICD-10-PCS; 2019-08-13)
PROC: 5A1935Z Respiratory Ventilation, Less than 24 Consecutive Hours (ICD-10-PCS; 2019-08-13)
PROC: 0S9D00Z Drainage of Left Knee Joint with Drainage Device, Open Approach (ICD-10-PCS; principal; 2019-08-13 15:30)
DX: A41.9 Sepsis, unspecified organism (principal); R65.21 Severe sepsis with septic shock; J96.01 Acute respiratory failure with hypoxia; G93.41 Metabolic encephalopathy; K72.00 Acute and subacute hepatic failure without coma; I21.A1 Myocardial infarction type 2; N17.0 Acute kidney failure with tubular necrosis; N18.4 Chronic kidney disease, stage 4 (severe); M00.9 Pyogenic arthritis, unspecified; I13.0 Hypertensive heart and chronic kidney disease with heart failure and stage 1 through stage 4 chronic kidney disease, or unspecified chronic kidney disease; I48.19 Other persistent atrial fibrillation; E87.1 Hypo-osmolality and hyponatremia; E87.2 Acidosis; Z99.11 Dependence on respirator [ventilator] status; D68.69 Other thrombophilia; I50.42 Chronic combined systolic (congestive) and diastolic (congestive) heart failure; R26.2 Difficulty in walking, not elsewhere classified; I25.10 Atherosclerotic heart disease of native coronary artery without angina pectoris; E11.22 Type 2 diabetes mellitus with diabetic chronic kidney disease; I25.2 Old myocardial infarction; I27.20 Pulmonary hypertension, unspecified; I08.3 Combined rheumatic disorders of mitral, aortic and tricuspid valves; Z96.649 Presence of unspecified artificial hip joint; E78.2 Mixed hyperlipidemia; E83.51 Hypocalcemia; Z66 Do not resuscitate; Z51.5 Encounter for palliative care; M19.90 Unspecified osteoarthritis, unspecified site; Z87.442 Personal history of urinary calculi; Z95.2 Presence of prosthetic heart valve; Z79.01 Long term (current) use of anticoagulants; Z95.5 Presence of coronary angioplasty implant and graft; Z79.4 Long term (current) use of insulin; Z79.899 Other long term (current) drug therapy
CPT/HCPCS: 36600; 71045; 74018; 80053; 82533; 82803; 83605; 83735; 83880; 84478; 84484; 85025; 85610; 87040; 87070; 87075; 87081; 87147; 87205; 93005; 93306; 94002; 96374; 96375; G0378; J0692; J2250; J2704; J3010; J7070; J0171; J0330; J2060; J2270; J7050